=== PATIENT | male | born 1980 | race Caucasian/White ===

== ENCOUNTER 2020-08-02 15:24 | Emergency (ER) | payer SELFPAY ==
[~2020-08-02] VITALS: Ht 177.8 cm; Wt 77.1 kg
[2020-08-02 15:33] VITALS: BP 116/78
--- NOTE | 2020-08-02 15:49 | Emergency Room Report ---
History of Present Illness General Chief Complaint: Pain Source: Patient Present Illness HPI 40 YO male presents to the ED c/o 12/29 in severity pain, tender, erythema and open blisters to the feet bilaterally. Patient reports erythema and tenderness became noticeable yesterday. Patient reports he sustained blisters when trying to break in a pair shoes several days ago. He denies exposure of his feet to cold wet environment. He denies fevers or chills. Denies history of poor circulation neuropathy, or diabetes. Patient denies any allergies to medications. He denies trauma or fall. He reports he is up-to-date with his tetanus vaccine. Allergies: Coded Allergies: No Known Allergies (Unverified , 08/02/20) COVID-19 Screening Contact w/high risk pt: No Experienced COVID-19 symptoms?: No COVID-19 Testing performed PHYSICIAN OFFICE NURSE: No Patient History Past Medical History: see triage record Past Surgical History: none Pertinent Family History: none Immunizations: UTD Reviewed Nursing Documentation: PMH: Agreed; PSxH: Agreed Nursing Documentation-PMH Past Medical History: No Stated History Review of Systems All Other Systems: negative except mentioned in HPI Physical Exam Vital Signs Date Time Temp Pulse Resp B/P (MAP) Pulse Ox O2 Delivery O2 Flow Rate FiO2 08/02/20 15:28 98.2 89 18 116/78 (91) 95 Room Air Sp02 EP Interpretation: reviewed, normal General Appearance: no apparent distress, alert, GCS 15, non-toxic Head: normocephalic, atraumatic Eyes: bilateral eye normal inspection, bilateral eye PERRL ENT: hearing grossly normal, normal voice Neck: full range of motion Respiratory: lungs clear, normal breath sounds, speaking full sentences Cardiovascular #1: regular rate, rhythm, no edema, normal capillary refill Musculoskeletal: normal range of motion, gait/station normal, non-tender, swelling - the right 4th and 5th toes. , other Neurologic: alert, motor strength/tone normal, oriented x3, sensory intact, responsive, speech normal Psychiatric: judgement/insight normal Skin: other - Bottom of the feet bilaterally are grossly contaminated. There is some soft tissue swelling with some erythema to the dorsal aspect of the right third and fourth digits as well as the left fifth digit. There are approximately 4 blisters some of which have some crusting and surrounding erythema. There is no sloughing of the skin. There is no macerated/wet appearance. Normal cap refill and dorsalis pulses Medical Decision Making PA Attestation Dr. Torrez is my supervising Physician whom patient management has been discussed with. Diagnostic Impression: Primary Impression: Cellulitis of both feet Additional Impression: Blisters of multiple sites, infected ER Course 40 YO male presents to the ED c/o 5/10 in severity pain, tender, erythema and open blisters to the feet bilaterally. Patient reports erythema and tenderness became noticeable yesterday. Patient reports he sustained blisters when trying to break in a pair shoes several days ago. He denies exposure of his feet to cold wet environment. He denies fevers or chills. Denies history of poor circulation neuropathy, or diabetes. Patient denies any allergies to medi cations. He denies trauma or fall. He reports he is up-to-date with his tetanus vaccine. Ddx considered but are not limited to cellulitis, Necrotizing fasciitis, allergic reaction, burn, dermatitis,fungal infection, circulatory compromise, fracture, d/L, gout, ingrown toe nail, Vital signs: are WNL, pt. is afebrile H&PE are most consistent with multiple blisters of the feet bilaterally with secondary cellulitis, normal cap refill. ORDERS: none required at this time, the diagnosis is clinical ED INTERVENTIONS: None required at this time. DISCHARGE: At this time pt. is stable for d/c to home. Will provide printed patient care instructions, and any necessary prescriptions. Care plan and follow up instructions have been discussed with the patient prior to discharge. Last Vital Signs Date Time Temp Pulse Resp B/P (MAP) Pulse Ox O2 Delivery O2 Flow Rate FiO2 08/02/20 15:33 98.2 89 18 116/78 95 Room Air Disposition: HOME, SELF-CARE Condition: Stable Scripts Bacitracin (Bacitracin) 28.4 Gm Oint...g. 1 APPLIC TOPIC THREE TIMES A DAY, #28.4 GM Prov: Patricia Leach 08/02/20 Trimethoprim/Sulfamethoxazole 160/800* (BACTRIM DS TABLET*) 1 Each Tablet 1 TAB ORAL TWICE A DAY for 7 Days, #14 TAB Prov: Patricia Leach 08/02/20 Cephalexin* (KEFLEX*) 500 Mg Capsule 500 MG ORAL EVERY 12 HOURS for 7 Days, #14 CAP 0 Refills Prov: Patricia Leach 08/02/20 Referrals: [facility] + [facility] Patient Instructions: Cellulitis, [id number] Additional Instructions: Take medications as directed. Follow up with a Primary Care Provider in 3-5 days, even if your symptoms have resolved. --Please review list of primary care clinics, if you do not already have a primary care provider Return sooner to ED if new symptoms occur, or current symptoms become worse. - Please note that this Emergency Department Report was dictated using [employer] shop teacher technology software, occasionally this can lead to erroneous entry secondary to interpretation by the dictation equipment. Patricia Leach Aug 02, 2020 15:49
[2020-08-02] MEDS ORDERED: BACITRACIN15 GM TOPIC (15:51)
[2020-08-02] MEDS ORDERED: BACTRIM DS TAB1 EAC1 ORAL (15:51)
[2020-08-02] MEDS ORDERED: CEPHALEXIN500 MG ORAL (15:51)
[2020-08-02 15:56] VITALS: BP 115/73
== END 2020-08-02 15:56 | disposition home or self-care (01) ==
LOC: EMR 15:45
DX: L03.116 Cellulitis of left lower limb (principal); L03.115 Cellulitis of right lower limb; L08.89 Other specified local infections of the skin and subcutaneous tissue; S90.822A Blister (nonthermal), left foot, initial encounter; S90.821A Blister (nonthermal), right foot, initial encounter; X58.XXXA Exposure to other specified factors, initial encounter; Y93.9 Activity, unspecified
CPT/HCPCS: 99282